=== PATIENT | male | born 1970 | race Caucasian/White ===

== ENCOUNTER 2019-11-19 16:02 | Emergency (ER) | payer OTHER ==
[~2019-11-19] VITALS: Ht 170.2 cm; Wt 77.1 kg
[2019-11-19 16:11] VITALS: BP_SYST 125
[2019-11-19] MEDS ORDERED: DIPH-TET-PERTUS Vaccine 0.5 ML VIAL (ADACEL) I.M. ONE (16:15)
[2019-11-19] MEDS ORDERED: LIDOCAINE 1% 10 MG/ML, 20 ML MDV INJ ONE (16:15)
[2019-11-19] MEDS ORDERED: BACITRACIN 1 GM OINT TP ONE (16:54)
== END 2019-11-19 16:50 | disposition home or self-care (01) ==
LOC: SED 16:02
DX: S61.211A Laceration without foreign body of left index finger without damage to nail, initial encounter (principal); X58.XXXA Exposure to other specified factors, initial encounter; Y93.89 Activity, other specified; Y92.89 Other specified places as the place of occurrence of the external cause; Y99.8 Other external cause status
CPT/HCPCS: 12002; 90471; 90715; 99283; J2001

== ENCOUNTER 2019-11-27 10:50 | Emergency (ER) | payer OTHER ==
[~2019-11-27] VITALS: Ht 160 cm; Wt 74.8 kg
[2019-11-27 11:06] VITALS: BP_SYST 159
[2019-11-27 12:28] VITALS: BP_SYST 142
== END 2019-11-27 12:00 | disposition home or self-care (01) ==
LOC: SED 10:50
DX: S61.210D Laceration without foreign body of right index finger without damage to nail, subsequent encounter (principal); X58.XXXD Exposure to other specified factors, subsequent encounter
CPT/HCPCS: 99283

== ENCOUNTER 2021-02-17 05:00 | Emergency (ER) | payer BC, OTHER ==
[~2021-02-17] VITALS: Ht 190.5 cm; Wt 122.5 kg
[2021-02-17 05:10] VITALS: BP_SYST 173
--- NOTE | 2021-02-17 05:10 | NUR ---
Patient to ER bed 4 to gown for evaluation. Side rails up. Report given to ANIVAL OCTOBER.
--- NOTE | 2021-02-17 05:11 | NUR ---
Patient BIB by family from home. C/O Left falnk pain x today. Patient reported, had left flank pain since midnight, took Motrin, no relief, Hx Kidney stone 5 years ago. A/O,X4, left flank pain, pain rate 10/10, radiate to left lower abdominal, place patient on monitor.
--- NOTE | 2021-02-17 05:20 | NUR ---
# 20 gauge angiocath placed to LAC. Use of asceptic technique. Opsite placed over site. Blood return noted. Blood for lab drawn from site. Flushed with 10 cc of normal saline. No evidence of infiltration noted. Patient tolerated well.
--- NOTE | 2021-02-17 05:21 | NUR ---
Seen and examined by DR. ruth, ER attending
[2021-02-17] MEDS ORDERED: ONDANSETRON HCL 4 MG/2 ML VIAL IVP ONE (05:30)
[2021-02-17] MEDS ORDERED: MORPHINE 2 MG/ML INJ. SYRINGE IVP ONE (05:30)
[2021-02-17] MEDS ORDERED: NACL 0.9% 1,000 ML IV ONE ×2 (05:30)
[2021-02-17] MEDS ORDERED: KETOROLAC TROMETHAMINE 30 MG VIAL IVP ONE (05:30)
[2021-02-17] MEDS ORDERED: ONDANSETRON HCL 4 MG/2 ML VIAL ONE (05:31)
[2021-02-17] MEDS ORDERED: KETOROLAC TROMETHAMINE 30 MG VIAL ONE (05:32)
[2021-02-17] MEDS ORDERED: MORPHINE 2 MG/ML INJ. SYRINGE ONE (05:32)
[2021-02-17 05:56] LABS: BASOPHILS # (AUTO) 0.1 K/uL (0.0-0.2); EOSINOPHILS # (AUTO) 0.6 K/uL (0.0-0.4); EOSINOPHILS % (AUTO) 3.8 % (0.0-4.0); HEMATOCRIT 46.3 % (36-54); LYMPHOCYTES # (AUTO) 2.8 K/uL (1.0-5.5); LYMPHOCYTES % (AUTO) 18.9 % (20.5-51.5); MEAN CORPUSCULAR HEMOGLOBIN 32 pg (27-31); MEAN CORPUSCULAR HGB CONC 35 % (32-36); MEAN CORPUSCULAR VOLUME 94 fL (79.0-98.0); MONOCYTES # (AUTO) 1.5 K/uL (0.0-1.0); MONOCYTES % (AUTO) 9.9 % (1.7-9.3); NEUTROPHILS % (AUTO) 66.4 % (40.0-70.0); PLATELET COUNT (AUTO) 274 K/uL (130-430); RED BLOOD CELL COUNT(AUTO) 4.95 MIL/uL (4.2-6.2); RED CELL DISTRIBUTION WIDTH 13.4 % (9.0-15.0)
[2021-02-17 06:12] LABS: CREATININE 1.4 mg/dL (0.55-1.30); POTASSIUM 3.6 mmol/L (3.5-5.1)
[2021-02-17 06:18] LABS: ALBUMIN 4.3 g/dL (3.4-4.8); TOTAL BILIRUBIN 0.5 mg/dL (0.0-1.0)
--- NOTE | 2021-02-17 06:38 | NUR ---
Patient started had flank pain, pain rate /, Dr. Newsome notified.
[2021-02-17] MEDS ORDERED: MORPHINE 4 MG INJ. 4 MG/ML VIAL IVP ONE (06:45)
[2021-02-17] MEDS ORDERED: ACETAMINOPHEN 500 MG TABLET PO ONE (06:45)
--- NOTE | 2021-02-17 07:30 | NUR ---
Assumed care of patient, report received from ANIVAL Jeff. Pt currently resting in bed, no acute distress noted.
[2021-02-17 08:32] LABS: BILIRUBIN,URINE NEGATIVE (NEGATIVE); BLOOD, URINE 2+ (NEGATIVE); CLARITY/URINE CLEAR (CLEAR); COLOR,URINE YELLOW (YELLOW); GLUCOSE,URINE NEGATIVE (NEGATIVE); KETONES,URINE NEGATIVE (NEGATIVE); LEUKOCYTE ESTERASE ,URINE NEGATIVE (NEGATIVE); NITRITE, URINE NEGATIVE (NEGATIVE); PH,URINE 6.5 (5.0-8.0); PROTEIN URINE NEGATIVE (NEGATIVE); UROBILINOGEN,URINE 0.2 (0.2-1.0)
[2021-02-17 09:11] LABS: BACTERIA,URINE RARE /HPF (None Seen); WBC,URINE 0-3 /HPF (0-3)
[2021-02-17] MEDS ORDERED: TAMS-11 PO (09:56)
[2021-02-17] MEDS ORDERED: HYDR-3917 PO (09:56)
[2021-02-17] MEDS ORDERED: IBUP-1968 PO (09:56)
--- NOTE | 2021-02-17 11:00 | NUR ---
Patient given written and verbal discharge instructions and verbalizes understanding. ER MD discussed with patient the results and treatment provided. Patient in stable condition. ID arm band removed. IV catheter removed intact and dressing applied, no active bleeding. Rx of motrin, Flomax and Red [place]et given. Patient educated on pain management and to follow up with PMD. Pain Scale 0. Opportunity for questions provided and answered. Medication side effect fact sheet provided.
[2021-02-17 11:02] VITALS: BP_SYST 141
== END 2021-02-17 11:00 | disposition home or self-care (01) ==
LOC: SED 05:00
DX: N20.9 Urinary calculus, unspecified (principal); Z79.899 Other long term (current) drug therapy
CPT/HCPCS: 36415; 80053; 81000; 83690; 85025; 96361; 96374; 96375; 96376; 99284; J1885; J2270 ×2; J2405; J7030

== ENCOUNTER 2021-02-22 08:15 | Emergency (ER) | payer BC ==
[~2021-02-22] VITALS: Ht 190.5 cm; Wt 122.5 kg
[~2021-02-22 08:15] MED LIST: HYDR-3917 PO; IBUP-1968 PO; TAMS-11 PO
--- NOTE | 2021-02-22 08:30 | NUR ---
RECEIVED AND IN ROOM 1, STEADY GAIT, RESP UNLABORED, C/O LT FLANK PAIN S/P HX OF NEPHROLITHIASIS
[2021-02-22 08:31] VITALS: BP_SYST 143
--- NOTE | 2021-02-22 09:25 | NUR ---
DR ESPOSITO IN TO ASSESS
[2021-02-22] MEDS ORDERED: KETOROLAC TROMETHAMINE 30 MG VIAL IVP ONE (09:30)
[2021-02-22] MEDS ORDERED: DIPHENHYDRAMINE INJ 50 MG/ML VIAL IVP ONE (09:30)
[2021-02-22] MEDS ORDERED: NACL 0.9% 1,000 ML IV ONE (09:30)
[2021-02-22] MEDS ORDERED: KETOROLAC TROMETHAMINE 30 MG VIAL ONE (09:48)
--- NOTE | 2021-02-22 09:53 | NUR ---
MEDICATED ORDERED, VSS, NO DISTRESS, SKIN WARM AND DRY
[2021-02-22 10:00] LABS: CALCIUM 8.8 mg/dL (8.4-11.0); CREATININE 1.91 mg/dL (0.55-1.30); POTASSIUM 3.6 mmol/L (3.5-5.1)
[2021-02-22 10:01] LABS: BASOPHILS # (AUTO) 0.1 K/uL (0.0-0.2); EOSINOPHILS # (AUTO) 0.3 K/uL (0.0-0.4); EOSINOPHILS % (AUTO) 3.1 % (0.0-4.0); HEMATOCRIT 44.7 % (36-54); HEMOGLOBIN 15.4 g/dL (14.0-18.0); LYMPHOCYTES # (AUTO) 1.4 K/uL (1.0-5.5); LYMPHOCYTES % (AUTO) 12.7 % (20.5-51.5); MEAN CORPUSCULAR HEMOGLOBIN 32 pg (27-31); MEAN CORPUSCULAR HGB CONC 35 % (32-36); MEAN CORPUSCULAR VOLUME 93 fL (79.0-98.0); MONOCYTES % (AUTO) 8.9 % (1.7-9.3); NEUTROPHILS # (AUTO) 8.4 K/uL (1.8-7.7); NEUTROPHILS % (AUTO) 74.3 % (40.0-70.0); PLATELET COUNT (AUTO) 258 K/uL (130-430); RED BLOOD CELL COUNT(AUTO) 4.79 MIL/uL (4.2-6.2); RED CELL DISTRIBUTION WIDTH 13.2 % (9.0-15.0); WHITE BLOOD COUNT (AUTO) 11.3 K/uL (4.8-10.8)
[2021-02-22 10:05] LABS: ALBUMIN 3.9 g/dL (3.4-4.8); TOTAL BILIRUBIN 0.8 mg/dL (0.0-1.0)
--- NOTE | 2021-02-22 11:04 | NUR ---
BACK FROM CT, STEADY ON FEET, [facility]A SENT
[2021-02-22 11:33] LABS: BILIRUBIN,URINE NEGATIVE (NEGATIVE); BLOOD, URINE NEGATIVE (NEGATIVE); CLARITY/URINE CLEAR (CLEAR); COLOR,URINE YELLOW (YELLOW); GLUCOSE,URINE NEGATIVE (NEGATIVE); KETONES,URINE NEGATIVE (NEGATIVE); LEUKOCYTE ESTERASE ,URINE NEGATIVE (NEGATIVE); NITRITE, URINE NEGATIVE (NEGATIVE); PROTEIN URINE NEGATIVE (NEGATIVE); UROBILINOGEN,URINE 0.2 (0.2-1.0)
--- NOTE | 2021-02-22 12:05 | NUR ---
CALM, ALERT, RESP UNLABORED, SKIN WARM AND DRY. UP AMBULATING STEADY TO BATHROOM, NO DISTRESS
--- NOTE | 2021-02-22 13:03 | NUR ---
MEAL PROVIDED. TOLERATING WELL
--- NOTE | 2021-02-22 13:22 | NUR ---
BED ASSIGNMENT [id number] [phone]
--- NOTE | 2021-02-22 13:26 | NUR ---
REPORT TO TORI AT [facility] IN [place]
--- NOTE | 2021-02-22 14:50 | NUR ---
Pt resting at this time, VSS, respirations even and unlabored
[2021-02-22 15:36] VITALS: BP_SYST 121
--- NOTE | 2021-02-22 15:45 | NUR ---
Patient to be transferred to . Is being transferred due to higher level of care. Receiving facility has accepting physician and available space. ER physician has signed transfer form. Patient or responsible libertarian has agreed to transfer and signed form. Patient belongings inventoried and will be sent with patient. Copy of nursing notes, lab reports, EKG, Physicians Orders and X-rays to be sent with patient. Report called to TORI at receiving facility. Receiving physician is . [facility] has been called for transfer. ETA is NOW
== END 2021-02-22 15:30 | disposition home or self-care (01) ==
LOC: SED 08:15
DX: N13.2 Hydronephrosis with renal and ureteral calculous obstruction (principal); I10 Essential (primary) hypertension; Z20.822 Contact with and (suspected) exposure to COVID-19; Z79.899 Other long term (current) drug therapy
CPT/HCPCS: 36415; 74176; 76376; 80053; 81003; 85025; 87426; 96374; 96375; 99285; J1200; J1885

== ENCOUNTER 2022-08-15 22:15 | Emergency (ER) | payer BC ==
[~2022-08-15] VITALS: Ht 190.5 cm; Wt 122.5 kg
[2022-08-15 22:27] VITALS: BP_SYST 128
--- NOTE | 2022-08-15 22:27 | NUR ---
Triaged and placed patient back to the waiting room. No acute respiratory distress at this time. VSS. Informed patient to notify ED staff for any changes in condition or worsening of symptoms while waiting to be seen by a provider. Patient verbalized understanding.
--- NOTE | 2022-08-15 22:49 | NUR ---
Dr. Devine in triage room examining the patient.
[2022-08-15 23:21] LABS: BASOPHILS # (AUTO) 0.1 K/uL (0.0-0.2); BASOPHILS % (AUTO) 1.1 % (0.0-2.0); EOSINOPHILS # (AUTO) 0.6 K/uL (0.0-0.4); EOSINOPHILS % (AUTO) 5.2 % (0.0-4.0); HEMATOCRIT 42.8 % (36-54); HEMOGLOBIN 14.8 g/dL (14.0-18.0); LYMPHOCYTES # (AUTO) 2.7 K/uL (1.0-5.5); LYMPHOCYTES % (AUTO) 24.6 % (20.5-51.5); MEAN CORPUSCULAR HEMOGLOBIN 32 pg (27-31); MEAN CORPUSCULAR HGB CONC 35 % (32-36); MEAN CORPUSCULAR VOLUME 94 fL (79.0-98.0); MONOCYTES # (AUTO) 1.3 K/uL (0.0-1.0); MONOCYTES % (AUTO) 11.7 % (1.7-9.3); NEUTROPHILS # (AUTO) 6.4 K/uL (1.8-7.7); NEUTROPHILS % (AUTO) 57.4 % (40.0-70.0); PLATELET COUNT (AUTO) 258 K/uL (130-430); RED BLOOD CELL COUNT(AUTO) 4.57 MIL/uL (4.2-6.2); RED CELL DISTRIBUTION WIDTH 13.5 % (9.0-15.0); WHITE BLOOD COUNT (AUTO) 11.1 K/uL (4.8-10.8)
[2022-08-15 23:34] LABS: ANION GAP 12 (5-15); CALCIUM 9.2 mg/dL (8.4-11.0); CHLORIDE 99 mmol/L (98-107); CREATININE 1.23 mg/dL (0.55-1.30); GLUCOSE 106 mg/dL (70-99); UREA NITROGEN, BLOOD 18 mg/dL (8-21)
[2022-08-15 23:42] LABS: ALANINE AMINOTRANSFERASE 23 U/L (12-78); ASPARTATE AMINOTRANSFERASE 21 U/L (10-37); TOTAL BILIRUBIN 0.6 mg/dL (0.0-1.0)
[2022-08-15 23:43] LABS: GFR AFRICAN AMERICAN 80 mL/min (>90)
[2022-08-16] MEDS ORDERED: KETOROLAC TROMETHAMINE 30 MG VIAL IM ONE (00:45)
--- NOTE | 2022-08-16 01:12 | NUR ---
Patient to ER bed ZELAYA to [facility] for evaluation. Side rails up. Report given to DELIA Morales RN([facility]).
[2022-08-16] MEDS ORDERED: FLUT16SP16 NS (01:53)
[2022-08-16] MEDS ORDERED: ACET-2634 PO (01:53)
--- NOTE | 2022-08-16 02:15 | NUR ---
Patient given written and verbal discharge instructions and verbalizes understanding. ER MD discussed with patient the results and treatment provided. Patient in stable condition. ID arm band removed. Rx of ACETAMINOPHEN AND FLUTICASONE given. Patient educated on pain management and to follow up with PMD. Pain Scale 0/10. Opportunity for questions provided and answered.
[2022-08-16 02:16] VITALS: BP_SYST 138
== END 2022-08-16 02:15 | disposition home or self-care (01) ==
LOC: SED 22:15
DX: J32.9 Chronic sinusitis, unspecified (principal); R51.9 Headache, unspecified; R07.9 Chest pain, unspecified; I10 Essential (primary) hypertension; Z79.899 Other long term (current) drug therapy
CPT/HCPCS: 99285; 70450; 71045; 80053; 85025; 84484; 36415; 93005; 76376; 96372; J1885

== ENCOUNTER 2023-06-02 21:53 | Emergency (ER) | payer BC ==
[~2023-06-02 21:53] MED LIST changes: +ACET-2634 PO; +FLUT16SP16 NS
[2023-06-02] MEDS ORDERED: ASPIRIN 81 MG TAB.CHEW PO ONE (22:30)
[2023-06-02] MEDS ORDERED: HYDROcodone/ACETAMIN 5-325 MG TAB (NORCO/ VICODIN) PO ONE (23:00)
[2023-06-02 23:06] LABS: BASOPHILS # (AUTO) 0.1 K/uL (0.0-0.2); BASOPHILS % (AUTO) 1.1 % (0.0-2.0); EOSINOPHILS # (AUTO) 0.6 K/uL (0.0-0.4); EOSINOPHILS % (AUTO) 4.6 % (0.0-4.0); HEMATOCRIT 42.1 % (36-54); HEMOGLOBIN 14.5 g/dL (14.0-18.0); LYMPHOCYTES # (AUTO) 3.1 K/uL (1.0-5.5); LYMPHOCYTES % (AUTO) 25.7 % (20.5-51.5); MEAN CORPUSCULAR HEMOGLOBIN 33 pg (27-31); MEAN CORPUSCULAR HGB CONC 34 % (32-36); MEAN CORPUSCULAR VOLUME 95 fL (79.0-98.0); MONOCYTES # (AUTO) 1.4 K/uL (0.0-1.0); MONOCYTES % (AUTO) 11.9 % (1.7-9.3); NEUTROPHILS # (AUTO) 6.9 K/uL (1.8-7.7); NEUTROPHILS % (AUTO) 56.7 % (40.0-70.0); PLATELET COUNT (AUTO) 294 K/uL (130-430); RED BLOOD CELL COUNT(AUTO) 4.45 MIL/uL (4.2-6.2); RED CELL DISTRIBUTION WIDTH 13.2 % (9.0-15.0); WHITE BLOOD COUNT (AUTO) 12.1 K/uL (4.8-10.8)
[2023-06-02 23:09] LABS: ANION GAP 12 (5-15); CALCIUM 8.6 mg/dL (8.4-11.0); CARBON DIOXIDE 25 mmol/L (23-29); CHLORIDE 101 mmol/L (98-107); CREATININE 1.21 mg/dL (0.55-1.30); GFR AFRICAN AMERICAN 81 mL/min (>90); GLUCOSE 87 mg/dL (74-106); POTASSIUM 3.8 mmol/L (3.5-5.1); SODIUM SERUM 138 mmol/L (136-145); UREA NITROGEN, BLOOD 13 mg/dL (8-21)
[2023-06-02 23:11] LABS: GFR NON AFRICAN-AMERICAN 67 mL/min (>90)
[2023-06-03] MEDS ORDERED: ACET-2634 PO (03:53)
[2023-06-03] MEDS ORDERED: TRAM50TA2 PO (03:53)
[2023-06-03 04:12] VITALS: BP_SYST 131; PULSE 84; RESP 12; TEMP 97.7; O2SAT 95
== END 2023-06-03 04:12 | disposition home or self-care (01) ==
LOC: SED 21:53
DX: I10 Essential (primary) hypertension (principal); Z79.899 Other long term (current) drug therapy; M79.601 Pain in right arm
CPT/HCPCS: 36415; 71045; 73060-TC; 80048; 83880; 84484; 85025; 93005; 93971; 99285

== ENCOUNTER 2023-12-20 22:36 | Emergency (ER) | payer BC ==
[~2023-12-20] VITALS: Ht 190.5 cm; Wt 116.6 kg
[2023-12-20 22:50] VITALS: BP_SYST 126; PULSE 106; RESP 19; TEMP 98.6; O2SAT 95
[2023-12-21 00:35] LABS: BASOPHILS # (AUTO) 0.1 K/uL (0.0-0.2); BASOPHILS % (AUTO) 0.6 % (0.0-2.0); EOSINOPHILS # (AUTO) 0.3 K/uL (0.0-0.4); HEMATOCRIT 45.5 % (36-54); HEMOGLOBIN 15.4 g/dL (14.0-18.0); LYMPHOCYTES % (AUTO) 20.3 % (20.5-51.5); MEAN CORPUSCULAR HEMOGLOBIN 32 pg (27-31); MEAN CORPUSCULAR HGB CONC 34 % (32-36); MEAN CORPUSCULAR VOLUME 95 fL (79.0-98.0); MONOCYTES # (AUTO) 2.2 K/uL (0.0-1.0); NEUTROPHILS # (AUTO) 9.1 K/uL (1.8-7.7); NEUTROPHILS % (AUTO) 62.1 % (40.0-70.0); PLATELET COUNT (AUTO) 323 K/uL (130-430); RED BLOOD CELL COUNT(AUTO) 4.81 MIL/uL (4.2-6.2); RED CELL DISTRIBUTION WIDTH 13.3 % (9.0-15.0); WHITE BLOOD COUNT (AUTO) 14.6 K/uL (4.8-10.8)
[2023-12-21 00:36] LABS: CALCIUM 9.8 mg/dL (8.4-11.0); CREATININE 1.26 mg/dL (0.55-1.30); POTASSIUM 4.1 mmol/L (3.5-5.1)
[2023-12-21 01:14] LABS: INFLUENZA TYPE A Negative (NEGATIVE)
[2023-12-21] MEDS ORDERED: DOXY100C5 PO (01:16)
[2023-12-21] MEDS ORDERED: HYDR-3917 PO (01:16)
[2023-12-21 01:19] LABS: INFLUENZA TYPE B POSITIVE (NEGATIVE)
[2023-12-21] MEDS ORDERED: OSEL75CA PO (01:20)
[2023-12-21] MEDS: DOXYCYCLINE HYCLATE 100 MG TABLET PO ONE (01:45)
== END 2023-12-21 01:46 | disposition home or self-care (01) ==
LOC: SED 22:36
DX: J01.90 Acute sinusitis, unspecified (principal); Z20.822 Contact with and (suspected) exposure to COVID-19; R00.0 Tachycardia, unspecified; I10 Essential (primary) hypertension; Z79.899 Other long term (current) drug therapy; Z79.2 Long term (current) use of antibiotics
CPT/HCPCS: 36415; 80048; 83605; 85025; 87040; 99283

== ENCOUNTER 2024-04-14 18:43 | Emergency (ER) | payer BC ==
[~2024-04-14] VITALS: Ht 190.5 cm; Wt 120.2 kg
[~2024-04-14 18:43] MED LIST changes: +DOXY100C5 PO; +OSEL75CA PO
[2024-04-14 19:07] VITALS: BP_SYST 113; PULSE 96; RESP 16; TEMP 97.9; O2SAT 97
[2024-04-14 19:41] LABS: BILIRUBIN,URINE NEGATIVE (NEGATIVE); BLOOD, URINE 3+ (NEGATIVE); CLARITY/URINE SL CLOUDY (CLEAR); COLOR,URINE RED (YELLOW); GLUCOSE,URINE NEGATIVE (NEGATIVE); KETONES,URINE NEGATIVE (NEGATIVE); NITRITE, URINE NEGATIVE (NEGATIVE); PROTEIN URINE 1+ (NEGATIVE)
[2024-04-14 19:48] LABS: BACTERIA,URINE RARE /HPF (None Seen); LEUKOCYTE ESTERASE ,URINE NEGATIVE (NEGATIVE); MUCUS,URINE None Seen /LPF (None Seen); RBC,URINE >100 /HPF (0-3); WBC,URINE 0-3 /HPF (0-3)
[2024-04-14 19:53] LABS: BASOPHILS # (AUTO) 0.1 K/uL (0.0-0.2); BASOPHILS % (AUTO) 1.3 % (0.0-2.0); EOSINOPHILS # (AUTO) 0.3 K/uL (0.0-0.4); EOSINOPHILS % (AUTO) 3.3 % (0.0-4.0); HEMATOCRIT 42.9 % (36-54); HEMOGLOBIN 14.9 g/dL (14.0-18.0); LYMPHOCYTES # (AUTO) 2.3 K/uL (1.0-5.5); LYMPHOCYTES % (AUTO) 25.3 % (20.5-51.5); MEAN CORPUSCULAR HEMOGLOBIN 32 pg (27-31); MEAN CORPUSCULAR HGB CONC 35 % (32-36); MEAN CORPUSCULAR VOLUME 92 fL (79.0-98.0); MONOCYTES # (AUTO) 1.1 K/uL (0.0-1.0); MONOCYTES % (AUTO) 11.9 % (1.7-9.3); NEUTROPHILS # (AUTO) 5.2 K/uL (1.8-7.7); NEUTROPHILS % (AUTO) 58.2 % (40.0-70.0); PLATELET COUNT (AUTO) 288 K/uL (130-430); RED BLOOD CELL COUNT(AUTO) 4.69 MIL/uL (4.2-6.2); RED CELL DISTRIBUTION WIDTH 13.4 % (9.0-15.0)
[2024-04-14] MEDS: KETOROLAC TROMETHAMINE 30 MG VIAL IM ONE (20:00)
[2024-04-14 20:10] LABS: ALBUMIN 4.1 g/dL (3.4-4.8); CREATININE 1.34 mg/dL (0.55-1.30); POTASSIUM 3.8 mmol/L (3.5-5.1); TOTAL BILIRUBIN 0.6 mg/dL (0.0-1.0); TOTAL PROTEIN, SERUM 7.9 g/dL (6.4-8.3)
[2024-04-14] MEDS ORDERED: HYDR-3927 PO (22:11)
[2024-04-14] MEDS ORDERED: TAMS-11 PO (22:11)
[2024-04-14] MEDS ORDERED: ONDA-8 TL (22:11)
[2024-04-14] MEDS ORDERED: TAMSULOSIN HCL 0.4 MG CAP ONE (22:21)
[2024-04-14] MEDS: TAMSULOSIN HCL 0.4 MG CAP PO ONE (22:22)
[2024-04-14 22:32] VITALS: BP_SYST 120; PULSE 90; RESP 18; TEMP 98.4; O2SAT 98
== END 2024-04-14 22:29 | disposition home or self-care (01) ==
LOC: SED 18:43
DX: N23 Unspecified renal colic (principal); R31.9 Hematuria, unspecified; I10 Essential (primary) hypertension; Z87.442 Personal history of urinary calculi; Z79.899 Other long term (current) drug therapy
CPT/HCPCS: 99285; 74176; 80053; 81001; 83690; 85025; 36415; 93005; 96372; J1885; 81000; 81015